=== PATIENT | male | born 2000 | race Hispanic/Latino ===

== ENCOUNTER 2024-06-11 01:20 | Emergency (ER) | payer BC ==
[~2024-06-11] VITALS: Ht 180.3 cm; Wt 138.8 kg
[2024-06-11] MEDS ORDERED: AMOX1TAB16 PO (02:20)
[2024-06-11 03:00] VITALS: BP 124/82; PULSE 92; RESP 16; O2SAT 98
== END 2024-06-11 03:05 | disposition home or self-care (01) ==
LOC: EDH 01:20
DX: S61.411A Laceration without foreign body of right hand, initial encounter (principal); Z79.899 Other long term (current) drug therapy; W54.0XXA Bitten by dog, initial encounter; Y93.89 Activity, other specified; Y92.89 Other specified places as the place of occurrence of the external cause; Y99.8 Other external cause status